=== PATIENT | female | born 1980 | race Caucasian/White ===

== ENCOUNTER 2019-12-14 17:48 | Emergency (ER) | payer OTHER ==
[~2019-12-14] VITALS: Ht 170.2 cm; Wt 106.6 kg
[2019-12-14 18:09] VITALS: Ht 170.2 cm; Wt 106.6 kg
[2019-12-14 19:45] VITALS: BP 138/67
== END 2019-12-14 19:45 | disposition home or self-care (01) ==
LOC: ED 17:48
DX: R07.89 Other chest pain (principal); F41.9 Anxiety disorder, unspecified; R06.4 Hyperventilation
CPT/HCPCS: 82962

== ENCOUNTER 2020-01-11 22:49 | Emergency (ER) | payer OTHER ==
[~2020-01-11] VITALS: Ht 170.2 cm; Wt 108.4 kg
[2020-01-11 23:03] VITALS: Ht 170.2 cm; Wt 108.4 kg
== END 2020-01-11 23:52 | disposition home or self-care (01) ==
LOC: ED 22:49
DX: B02.9 Zoster without complications (principal)